=== PATIENT | male | born 1960 | race Caucasian/White ===

== ENCOUNTER 2021-12-06 21:20 | Emergency (ER) | payer MEDICARE, MEDICAID ==
[~2021-12-06] VITALS: Ht 172.7 cm; Wt 81.6 kg
[2021-12-06 21:20] VITALS: BP 124/77
--- NOTE | 2021-12-06 21:37 | NUR ---
ENRIQUE HANCOCK CHAIR D
--- NOTE | 2021-12-06 21:59 | NUR ---
DR PHAN EXAMINING PT
--- NOTE | 2021-12-06 22:25 | NUR ---
PRINTER OPERATOR AT BEDSIDE
--- NOTE | 2021-12-06 22:31 | NUR ---
61 Y/O MALE BIBA FROM HOME WITH C/O CHEST PAIN, SINCE LAST NIGHT, PRESSURE RADIATING TO HIS BACK, 12/22 , HE WAS GIVEN NITRO 0.8 MG, AND ASA 324 MG BY MEDIC, S/P STENT PLACED LAST WEEK, EKG DONE , NSR. A/OX4, UNLABORED BREATHING, SPEAKING IN FULL SENTENCES. SKIN PINK/WARM/DRY. HX: CORONARY STENT, OPEN HEART SURG 2016, HERNIA, (TIA LAST WEEK), HTN, HIGH CHOLESTEROL NKA MED: ASA, ACETAM, LOSARTAN, CARVEDILOL, NITRO, RANOLAZINE, TICAGRELOR, ATORVASTATIN, AMLODIPINE, ISOSORBIDE
[2021-12-06 22:37] LABS: BASOPHILS % (AUTO) 0.5 % (0.0-2.0); EOSINOPHILS # (AUTO) 0.5 K/uL (0-0.4); EOSINOPHILS % (AUTO) 7.8 % (0.0-4.0); HEMATOCRIT 40.6 % (36-52); HEMOGLOBIN 13.8 g/dL (12.0-18.0); LYMPHOCYTES # (AUTO) 1.5 K/uL (2.0-11.5); LYMPHOCYTES % (AUTO) 21.9 % (20.5-51.1); MEAN CORPUSCULAR HEMOGLOBIN 30 pg (27-31); MEAN CORPUSCULAR HGB CONC 34 g/dL (33-37); MEAN CORPUSCULAR VOLUME 86.6 fL (80-94); MONOCYTES # (AUTO) 0.7 K/uL (0.8-1.0); MONOCYTES % (AUTO) 10.7 % (1.7-9.3); NEUTROPHILS # (AUTO) 4.1 K/uL (1.8-7.7); NEUTROPHILS % (AUTO) 59.1 % (42.2-75.2); PLATELET COUNT (AUTO) 295 K/uL (140-450); RED BLOOD CELL COUNT(AUTO) 4.69 MIL/uL (4.20-6.10); RED CELL DISTRIBUTION WIDTH 13.4 % (11.6-13.7)
[2021-12-06 22:49] LABS: PROTHROMBIN TIME 10.4 secs (10.8-13.4)
[2021-12-06 22:53] LABS: ALBUMIN 3.6 g/dL (3.4-5.0); ANION GAP 14.2 (8-16); CARBON DIOXIDE 24.6 mmol/L (21-32); CREATININE 1.3 mg/dL (0.6-1.3); POTASSIUM 3.8 mmol/L (3.5-5.1); TOTAL BILIRUBIN 0.5 mg/dL (0.0-1.0)
--- NOTE | 2021-12-07 00:50 | NUR ---
PT TAKEN TO CT
--- NOTE | 2021-12-07 01:10 | NUR ---
PT RETURNED FROM CT VIA WC
--- NOTE | 2021-12-07 04:10 | NUR ---
Patient appears to be resting comfortably in bed. Vital Signs within normal limits. Respirations even and unlabored.
[2021-12-07 05:12] VITALS: BP 127/82
--- NOTE | 2021-12-07 05:12 | NUR ---
Patient discharged with v/s stable. Written and verbal after care instructions given and explained. Patient verbalized understanding. Ambulatory with steady gait. All questions addressed prior to discharge. Advised to follow up with PMD.
== END 2021-12-07 05:12 | disposition home or self-care (01) ==
LOC: MED 21:20
DX: I20.8 Other forms of angina pectoris (principal); Z98.890 Other specified postprocedural states
CPT/HCPCS: 36415; 71045; 71275; 80053; 83880; 84484; 85025; 85610; 85730; 93005; 99285; Q9967